=== PATIENT | male | born 1960 | race Caucasian/White ===

== ENCOUNTER 2017-12-06 20:42 | Emergency (ER) | END 2017-12-07 01:51 | disposition home or self-care (01) ==

== ENCOUNTER 2018-01-25 21:43 | Emergency (ER) | END 2018-01-26 02:27 | disposition home or self-care (01) ==

== ENCOUNTER 2018-04-06 00:16 | Inpatient (IN) | END 2018-04-08 19:48 | disposition home or self-care (01) | DRG 91 ==